=== PATIENT | male | born 1995 | race Two or more races ===

== ENCOUNTER 2020-08-12 13:52 | Emergency (ER) | payer OTHER ==
[~2020-08-12] VITALS: Ht 175.3 cm; Wt 78.0 kg
[2020-08-12] MEDS ORDERED: CLEOCIN HCL300 MG (14:12)
[2020-08-12] MEDS ORDERED: VISTARIL25 MG PO (17:34)
== END 2020-08-12 18:12 | disposition home or self-care (01) ==
LOC: ER 13:52
DX: R00.2 Palpitations (principal); F06.4 Anxiety disorder due to known physiological condition